=== PATIENT | female | born 1950 | race Caucasian/White ===

== ENCOUNTER 2022-05-09 14:27 | Emergency (ER) | payer OTHER ==
[~2022-05-09] VITALS: Ht 162.6 cm; Wt 65.8 kg
[2022-05-09 14:37] VITALS: BP_SYST 166
--- NOTE | 2022-05-09 14:38 | NUR ---
ER at bedside examining patient.
[2022-05-09] MEDS ORDERED: ACETAMINOPHEN 500 MG TABLET PO ONE (15:30)
[2022-05-09] MEDS ORDERED: [UNRECOGNIZED DRUG - CODE] PO (15:36)
--- NOTE | 2022-05-09 15:36 | NUR ---
BIBS WITH C/C OF RIGHT HAND PAIN AFTER FALL ON SATURDAY NIGHT. DENIES ANY PAIN AT THIS TIME. + CMS WITH WEAK CAT DOG OR OTHER PET GROOMER. XR OF HAND COMPLETE. NOTED SWELLING ON DORSAL SURFACE OF HAND TO WRIST. DR. LALA SEEN AND ASSESSED HAND. ORDERED TO PLACE ON VELCRO WRIST SPLINT. WRIST SPLINT APPLIED WITH ICE PACK. PENDING DISCHARGE.
--- NOTE | 2022-05-09 15:49 | NUR ---
Patient given written and verbal discharge instructions and verbalizes understanding. ER MD discussed with patient the results and treatment provided. Patient in stable condition. ID arm band removed. Rx of given. Patient educated on pain management and to follow up with PMD. Pain Scale . Opportunity for questions provided and answered. Medication side effect fact sheet provided.
== END 2022-05-09 15:48 | disposition home or self-care (01) ==
LOC: SED 14:27
DX: S60.221A Contusion of right hand, initial encounter (principal); M79.641 Pain in right hand; Z79.899 Other long term (current) drug therapy; W18.30XA Fall on same level, unspecified, initial encounter; Y93.89 Activity, other specified; Y92.89 Other specified places as the place of occurrence of the external cause; Y99.8 Other external cause status
CPT/HCPCS: 99283